=== PATIENT | female | born 1960 | race African-American/Black ===

== ENCOUNTER 2025-02-15 17:26 | Emergency (ER) | payer BC, MEDICARE ==
[2025-02-15] MEDS ORDERED: predniSONE 20 MG TAB ONE (20:53)
== END 2025-02-15 20:59 | disposition home or self-care (01) ==
LOC: ERS 17:26
DX: J06.9 Acute upper respiratory infection, unspecified (principal); F17.210 Nicotine dependence, cigarettes, uncomplicated
CPT/HCPCS: 71046; 87428; J7512